=== PATIENT | female | born 1995 | race Caucasian/White ===

== ENCOUNTER 2020-02-13 16:19 | Emergency (ER) | payer OTHER, MEDICAID, SELFPAY ==
[2020-02-13 16:45] VITALS: BP 145/85; PULSE 77; RESP 16; TEMP 37.1; O2SAT 99; BMI 21.6
--- NOTE | 2020-02-13 17:40 | PC.NURSE ---
Recent diagnosis of pleurisy and sinus/ear infection, started on antibiotics. Reports no improvement of symptoms after taking antibiotics. Feeling worse.
--- NOTE | 2020-02-13 17:42 | DI.RAD.S_ITS ---
PROCEDURE: XR CHEST 2V INDICATIONS: chest pain, dyspnea TECHNIQUE: 2 views of the chest were acquired. COMPARISON: None. FINDINGS: Surgical changes and devices: None. Lungs and pleura: Lungs are clear. No pleural effusions or pneumothorax. Mediastinum: Mediastinal contours are normal. Heart size is normal. Bones and chest wall: No suspicious bony abnormalities. Soft tissues appear unremarkable. IMPRESSION: No acute cardiopulmonary disease process. Dictated by: Debra Jay MD, PhD on 02/13/2020 at 18:39 Approved by: Debra Jay MD, PhD on 02/13/2020 at 18:40
[2020-02-13 17:43] LABS: COVID19 -Nasal RAPID Negative (Negative)
[2020-02-13] MEDS: hydrOXYzine pamoate 25 MG CAPSULE PO (18:08)
[2020-02-13] MEDS: ACETAMINOPHEN 325 MG TABLET 650 MG PO (18:08)
--- NOTE | 2020-02-13 18:18 | ED_ITS ---
HPI - Chest Pain <CESARIO Dill - Last Filed: 02/13/20 20:38> General Chief Complaint: Shortness of Breath/Dyspnea Stated Complaint: SOB, past week, worsening Time Seen by Provider: 02/13/20 17:01 Source: patient Mode of arrival: Ambulatory Limitations: no limitations History of Present Illness HPI narrative: This is a 24 year female, occasional smoker, with past medical history significant for anxiety, middle ear effusion was currently taking antibiotic medication Cefpodoxime 200mg BID for 7 days and she is on day 3, presents to ED with her want with chief complain of left-sided upper chest and under the left breast pain, dizziness, short of breath started 1 week ago with w orsening symptoms, feeling fatigue as she was anemic in the past. Patient reports pain worsens with supine position and improves with leaning forward. Patient also reports bilateral upper leg cramping worsen right-sided. Patient denies swelling, warmth, or redness to lower extremities. Patient reports has been woken up from her sleep feeling with difficulty breathing. Patient denies fever, cough, history of blood clots, prolonged bed rest, calf pain, hemoptysis, near syncope or fainting episodes. Patient reports nasal congestion with breathing. Patient reports some discomfort in her jaw, ear, throat, mild nausea, chills. Patient denies exposure to Covid, symptoms of COVID, ill contac t. She denies travel outside the [facility]. Patient has hormonal IUD in placed. LMP 2 weeks ago. Patient reports after the wisdom tooth extraction in September, patient has fluid collection in the ear and had completed a course of antibiotic medication. She had started on singular which ran out and restarted about a month ago but she stopped several days ago for possible side effects and concerned if this is causing recent short of breath and chest pain. Patient had tele health appointment with and started on antibiotic medication for ear effusion/infection. PCP Dr. Soraida Wong and Dr. Coco Morrison at , [facility] [place] and she is currently visiting family in [facility]. Related Data Home Medications Medication Instructions Recorded Confirmed [SERTRALINE] 50 mg PO QDAY #0 02/05/20 loratadine 10 mg tablet 10 mg PO DAILY 02/05/20 02/05/20 montelukast PO 02/05/20 02/05/20 propranolol 20 mg tablet 20 mg PO BID 02/05/20 02/05/20 spironolactone 100 mg tablet 100 mg PO DAILY 02/05/20 02/05/20 Allergies Allergy/AdvReac Type Severity Reaction Status Date / Time amoxicillin [From Augmentin] Allergy rash Verified 02/13/20 16:50 clavulanic acid Allergy rash Verified 02/13/20 16:50 [From Augmentin] minocycline Allergy rash Verified 02/13/20 16:50 Sulfa (Sulfonamide Allergy Rash Verified 02/13/20 16:50 Antibiotics) clindamycin AdvReac heartburn Verified 02/13/20 16:50 LATEX Allergy Mild hives Uncoded 02/13/20 16:50 Review of Systems <SUYAPA DillP - Last Filed: 02/13/20 20:38> Review of Systems Narrative: General: Denies fever, (+) chills, (+) fatigue, malaise, sweats. HEENT: Denies sinus pain, (+) ear pain, (+) sore throat, difficulty swallowing, dizziness. Respiratory: See HPI Cardiovascular: See HPI Gastrointestinal: Denies (+) mild nausea, vomiting, abdominal pain, diarrhea, constipation, melena. : Denies dysuria, frequency, incontinence, hematuria, urinary retention. Musculoskeletal: Denies weakness, joint pain or bony pain. Skin: Denies rash, skin lesions, or other. Neurologic: Denies weakness, headache, numbness, change in speech, confusion, seizures, incoordination. Psychiatric: No concerning psychosocial issues. 12-point review of systems is negative except for those stated above. Patient History <SUYAPA DillP - Last Filed: 02/13/20 20:38> Social History Smoking Status: Never smoker Smoking Status: Never smoker alcohol intake frequency: 0-2 drinks per day Substance Use Type: marijuana Exam <Jorge [facility] Last Filed: 02/13/20 20:38> Narrative Exam Narrative: GEN: Alert, oriented x 3, well appearing and nourished, and in no acute distress. Head: Normal cephalic, atraumatic. No scalp or temporal tenderness, palpable mass or rash. EYES: Pupils are equal, round, and reactive to light and accommodation. Extraocular muscles are intact bilaterally. There is no subconjunctival hemorrhage, exudate and sclera non-icteric. ENT: Bilateral auditory canals clear. Tympanic membrane with slight purulent effusion in bilateral ears. Hearing grossly intact. Nose without bleeding, purulent discharge or deviation. Facial sinuses nontender to palpate. Mucous membrane moist, no mucosal lesion. Throat without erythema, tonsillar hypertrophy or exudate. Uvula in midline, airway patent. Neck: Trachea in midline. No JVD, non-tender without lymphadenopathy. No masses or thyroid megaly. Supple, non-tender and no meningeal signs. CARDIAC: Normal regular rate and rhythm without murmurs, gallops, or rubs. No chest wall tenderness. No peripheral edema, cyanosis or pallor. Capillary refill is less than 2 seconds. RESPIRATORY: Lungs are clear to auscultate bilaterally. No cough, wheezes, rales, or rhonchi. No stridor, respiratory distress, increase work of breathing, or accessary muscle used. ABD: Abdomen soft, nontender and non-distended. No guarding or rebound tenderness to palpate. Bowel sounds are normal in all 4 quadrants. There is no palpable masses or organomegaly. EXT: Full painless ROM of all extremities with no loss of sensation, strength, effusion or edema. SKIN: Macular erythematous rash on neck, upper chest, and upper back. Warm, dry, normal color for patient. No erythema, lesions or rash over visible areas. BACK: Nontender without deformity or crepitance. No flank tenderness. NEUROLOGICAL: Alert and oriented to place, time and person. Sensation and motor function intact bilaterally. No facial droops, dysphasia. PSYCHIATRIC: Good judgement and reason, without hallucinations, abnormal affect or abnormal behaviors during the examination. Patient is not suicidal. Initial Vital Signs Initial Vital Signs: Vital Signs Temperature 98.8 F 02/13/20 16:45 Pulse Rate 77 02/13/20 16:45 Respiratory Rate 16 02/13/20 16:45 Blood Pressure 145/85 H 02/13/20 16:45 Pulse Oximetry 99 02/13/20 16:45 <Krystal Barth DO - Last Filed: 02/14/20 07:50> Initial Vital Signs Initial Vital Signs: Vital Signs Temperature 98.8 F 02/13/20 16:45 Pulse Rate 77 02/13/20 16:45 Respiratory Rate 16 02/13/20 16:45 Blood Pressure 145/85 H 02/13/20 16:45 Pulse Oximetry 99 02/13/20 16:45 Scores <Jorge AngelCESARIO Martínez - Last Filed: 02/13/20 20:38> GCS [place] coma scale eye opening: Spontaneous Meme coma scale verbal response: Orientated [place] coma scale motor response: Obey commands Meme coma scale total score: 15 HEART Score Heart Score history: Slightly Suspicious Heart Score EKG: Normal Heart Score Age: < 45 years old Heart Score risk factors: No known risk factors Heart Score troponin: < or = to normal limit Heart Score Total: 0 Wells' Criteria for PE Clinical signs and symptoms of DVT: No PE is #1 Dx or equally likely: No Heart rate > 100: No Immobilization at least 3 days or surg in previous 4 weeks: No History of PE or DVT: No Hemoptysis: No Malignancy w/Treatment within 6 months or palliative: No Wells' PE Score total: 0 Course <[facility] - Last Filed: 02/13/20 20:38> Orders Ordered: Discontinued Medications Acetaminophen (Tylenol) 650 mg PO NOW ONE Stop: 02/13/20 17:43 Last Admin: 02/13/20 18:08 Dose: 650 mg Documented by: MARCIAL Hydroxyzine Pamoate (Vistaril) 25 mg PO NOW ONE Stop: 02/13/20 17:43 Last Admin: 02/13/20 18:17 Dose: Not Given Documented by: MARCIAL Vital Signs Vital signs: Vital Signs - 8 hr 02/13/20 16:45 Temperature 98.8 F Pulse Rate 77 Respiratory Rate 16 Blood Pressure 145/85 H Pulse Oximetry 99 <Krystal Barth DO - Last Filed: 02/14/20 07:50> Orders Ordered: Discontinued Medications Acetaminophen (Tylenol) 650 mg PO NOW ONE Stop: 02/13/20 17:43 Last Admin: 02/13/20 18:08 Dose: 650 mg Documented by: MARCIAL Hydroxyzine Pamoate (Vistaril) 25 mg PO NOW ONE Stop: 02/13/20 17:43 Last Admin: 02/13/20 18:17 Dose: Not Given Documented by: MARCIAL Vital Signs Vital signs: Vital Signs - 8 hr 02/13/20 16:45 Temperature 98.8 F Pulse Rate 77 Respiratory Rate 16 Blood Pressure 145/85 H Pulse Oximetry 99 MDM - Chest Pain <Jorge CESARIO Estes - Last Filed: 02/13/20 20:38> Differential Diagnosis Differential diagnosis: Likely unstable angina pectoris, atypical chest pain and other (Pleuritis, pericarditis, anxiety, pneumonia, Covid, pulmonary embolism, arrhythmia, abnormal electrolytes) Medical Records Data Attestation: I reviewed the patient's medical records. Lab Data Attestation: I reviewed the patient's lab results. Result diagrams: 02/13/20 18:14 02/13/20 18:14 Labs: Lab Results 02/13/20 02/13/20 02/13/20 Range/Units 17:10 18:14 18:14 WBC 5.8 (4.5-11.0) X10^3/uL RBC 4.65 (4.0-5.2) X10^6/uL Hgb 14.3 (12.0-16.0) g/dL Hct 42.1 (36-46) % MCV 90.6 (80-100) fL MCH 30.8 (26-34) PG MCHC 34.0 (30-36) % RDW 12.3 (11.6-14.8) % Plt Count 192 (150-400) X10^3/uL Neut % (Auto) 64.2 (50-75) % Lymph % (Auto) 27.7 (25-40) % [place] % (Auto) 5.5 (3-14) % Eos % (Auto) 1.8 L (2-4) % Baso % (Auto) 0.8 (0-2) % Neut # (Auto) 3800 (3308-7699) /uL Lymph # (Auto) 1600 (4366-6109) /uL [place] # (Auto) 300 (0-900) /uL Eos # (Auto) 100 (0-450) /uL Baso # (Auto) 0 (0-100) /uL D-Dimer 472 H (<230) ng/mL Sodium (137-145) mmol/L Potassium (3.4-5.1) mmol/L Chloride (98-107) mmol/L Carbon Dioxide (22-32) mmol/L BUN (7-17) mg/dL Creatinine (0.52-1.04) mg/dL Estimated GFR (>60) mL/min BUN/Creatinine Ratio (6-22) Glucose (70-100) mg/dL Lactate (0.7-2.1) mmol/L Calcium (8.4-10.2) mg/dL Magnesium (1.6-2.3) mg/dL Total Bilirubin (0.2-1.3) mg/dL AST (14-36) IU/L ALT (<35) IU/L Alkaline Phosphatase (38-126) U/L Total Creatine Kinase (30-135) U/L CK-MB (CK-2) CK-MB (CK-2) Rel Index Troponin I (0.01-0.034) ng/mL NT-Pro-B Natriuret Pep (<125) pg/mL Total Protein (6.3-8.2) g/dL Albumin (3.5-5.0) g/dL Globulin (1.7-4.1) g/dL Albumin/Globulin Ratio (1.0-2.8) Procalcitonin (<0.5) ng/mL COVID-19 PCR Negative (Negative) 02/13/20 02/13/20 02/13/20 Range/Units 18:14 18:14 18:14 WBC (4.5-11.0) X10^3/uL RBC (4.0-5.2) X10^6/uL Hgb (12.0-16.0) g/dL Hct (36-46) % MCV (80-100) fL MCH (26-34) PG MCHC (30-36) % RDW (11.6-14.8) % Plt Count (150-400) X10^3/uL Neut % (Auto) (50-75) % Lymph % (Auto) (25-40) % [place] % (Auto) (3-14) % Eos % (Auto) (2-4) % Baso % (Auto) (0-2) % Neut # (Auto) (8276-0826) /uL Lymph # (Auto) (2894-5524) /uL [place] # (Auto) (0-900) /uL Eos # (Auto) (0-450) /uL Baso # (Auto) (0-100) /uL D-Dimer (<230) ng/mL Sodium 136 L (137-145) mmol/L Potassium 4.1 (3.4-5.1) mmol/L Chloride 103 (98-107) mmol/L Carbon Dioxide 31 (22-32) mmol/L BUN 11 (7-17) mg/dL Creatinine 0.63 (0.52-1.04) mg/dL Estimated GFR > 60.0 (>60) mL/min BUN/Creatinine Ratio 17.5 (6-22) Glucose 99 (70-100) mg/dL Lactate 1.1 (0.7-2.1) mmol/L Calcium 9.5 (8.4-10.2) mg/dL Magnesium 2.0 (1.6-2.3) mg/dL Total Bilirubin 0.5 (0.2-1.3) mg/dL AST 31 (14-36) IU/L ALT 29 (<35) IU/L Alkaline Phosphatase 85 (38-126) U/L Total Creatine Kinase 53 (30-135) U/L CK-MB (CK-2) TNP CK-MB (CK-2) Rel Index TNP Troponin I < 0.012 (0.01-0.034) ng/mL NT-Pro-B Natriuret Pep (<125) pg/mL Total Protein 7.8 (6.3-8.2) g/dL Albumin 4.5 (3.5-5.0) g/dL Globulin 3.3 (1.7-4.1) g/dL Albumin/Globulin Ratio 1.4 (1.0-2.8) Procalcitonin < 0.05 (<0.5) ng/mL COVID-19 PCR (Negative) 02/13/20 Range/Units 18:14 WBC (4.5-11.0) X10^3/uL RBC (4.0-5.2) X10^6/uL Hgb (12.0-16.0) g/dL Hct (36-46) % MCV (80-100) fL MCH (26-34) PG MCHC (30-36) % RDW (11.6-14.8) % Plt Count (150-400) X10^3/uL Neut % (Auto) (50-75) % Lymph % (Auto) (25-40) % [place] % (Auto) (3-14) % Eos % (Auto) (2-4) % Baso % (Auto) (0-2) % Neut # (Auto) (5606-2168) /uL Lymph # (Auto) (6073-0107) /uL [place] # (Auto) (0-900) /uL Eos # (Auto) (0-450) /uL Baso # (Auto) (0-100) /uL D-Dimer (<230) ng/mL Sodium (137-145) mmol/L Potassium (3.4-5.1) mmol/L Chloride (98-107) mmol/L Carbon Dioxide (22-32) mmol/L BUN (7-17) mg/dL Creatinine (0.52-1.04) mg/dL Estimated GFR (>60) mL/min BUN/Creatinine Ratio (6-22) Glucose (70-100) mg/dL Lactate (0.7-2.1) mmol/L Calcium (8.4-10.2) mg/dL Magnesium (1.6-2.3) mg/dL Total Bilirubin (0.2-1.3) mg/dL AST (14-36) IU/L ALT (<35) IU/L Alkaline Phosphatase (38-126) U/L Total Creatine Kinase (30-135) U/L CK-MB (CK-2) CK-MB (CK-2) Rel Index Troponin I (0.01-0.034) ng/mL NT-Pro-B Natriuret Pep 27 (<125) pg/mL Total Protein (6.3-8.2) g/dL Albumin (3.5-5.0) g/dL Globulin (1.7-4.1) g/dL Albumin/Globulin Ratio (1.0-2.8) Procalcitonin (<0.5) ng/mL COVID-19 PCR (Negative) Point of Care Testing Test Results Negative Urine Dip Bedside Urine Glucose Negative Bedside Urine Bilirubin - Negative Bedside Urine Ketone - Negative Urine Specific [place] 1.010 Bedside Urine Occult Blood - Negative Bedside Urine pH 7.0 Bedside Urine Protein - Negative Bedside Urine Urobilinogen - Negative Bedside Urine Nitrite - Negative Bedside Urine Leukocytes - Negative Esterase Imaging Data Chest x-ray: Radiologist's Impression: [address] [address] XRay Report Signed Patient: Remigio Andino LMR#: [id number] : 1995Acct:[id number] Age/Sex: 24 / FDate of Service: 02/13/20 Loc: ED Accession Number: [id number] Procedure: XR chest 2V Ordering Provider: Jorge Estes PROCEDURE: XR CHEST 2V INDICATIONS: chest pain, dyspnea TECHNIQUE: 2 views of the chest were acquired. COMPARISON: None. FINDINGS: Surgical changes and devices: None. Lungs and pleura: Lungs are clear. No pleural effusions or pneumothorax. Mediastinum: Mediastinal contours are normal. Heart size is normal. Bones and chest wall: No suspicious bony abnormalities. Soft tissues appear unremarkable. IMPRESSION: No acute cardiopulmonary disease process. Dictated by: Debra Jay MD, PhD on 02/13/2020 at 18:39 Approved by: Debra Jay MD, PhD on 02/13/2020 at 18:40 CT scan - chest: Radiologist's Impression: Chart [facility]er Diagnostics DATE TYPE STATUS REF RANGE/AUTHOR Hx 02/13/20 18:55 Debra Jay 02/13/20 17:42 Debra Jay Remigio Andino 24, F1995 [facility], Main ED R06 180.34cm 70.307kg BMI: 21.6kg/m? Shortness of Breath/Dyspnea Search Chart No Data to Display NF - Not included in interaction checking rash rash rash Rash heartburn hives ONSET Today 16:45 Remigio Andino 24 F [address] [address] [address] Scan Report Signed Patient: Remigio Andino LMR#: [id number] : 1995Acct:[id number] Age/Sex: 24 / FDate of Service: 02/13/20 Loc: ED Accession Number: [id number] Procedure: CT angio chest PE protocol Ordering Provider: Jorge Estes PROCEDURE: CT ANGIO CHEST PE PROTOCOL INDICATIONS: SOB, Chest pain, elevated D dimer TECHNIQUE: After the administration of intravenous contrast, 2 mm thick sections acquired from the pulmonary apices to the posterior costophrenic angles. 3-dimensional maximum intensity projection (MIP) coronal and sagittal reformats were then acquired through the thorax. For radiation dose reduction, the following was used: automated exposure control, adjustment of mA and/or kV according to patient size. COMPARISON: None. FINDINGS: Image quality: Excellent. Pulmonary arteries: Pulmonary arteries are normal in size, and demonstrate no intraluminal filling defects to suggest central pulmonary embolism. Lungs and pleura: Lungs are clear. No pleural effusions or pneumothorax. Central and peripheral airways are patent. Mediastinum: Heart size is normal, without pericardial effusion. No mediastinal or hilar adenopathy. Thoracic aorta is normal in caliber and enhancement. Esophagus is normal in caliber, without hiatal hernia. Bones and chest wall: No suspicious bony lesions. Ribs and thoracic spine appear intact throughout. No axillary or supraclavicular adenopathy. Abdomen: Visualized upper abdominal solid organs appear normal in the early arterial phase of enhancement. IMPRESSION: 1. No pulmonary embolus. 2. No lung consolidation or pleural effusions. Dictated by: Debra Jay MD, PhD on 02/13/2020 at 19:30 Approved by: Debra Jay MD, PhD on 02/13/2020 at 19:33 ECG Data Attestation: I personally reviewed and interpreted this ECG as follows: Prior ECG tracings: available for review Interpretation: Sinus rhythm with sinus arrhythmia rate at 74. Normal [place]. NM interval 144, QRS duration 98, QT/QTC 373/[address] changes MDM Narrative Medical decision making narrative: This is a 24-year-old female who presents to ED with fatigue, left upper chest and under breast pain worse with supine position, dyspnea for last week with progressively worsening symptoms, nasal co ngestion. Patient reports ear pain for last 3 months and she is currently taking antibiotic medication was started 3 days ago. EKG sinus rhythm with sinus arrhythmia rate at [address] changes. Chest x-ray without acute findings. Unremarkable chemistry test. Stable H&H of 14.3/42.1. No leukocytosis. Negative cardiac enzymes. Normal BNP. Normal lactate and procalcitonin. Covid test was negative. D dimer has slight increase for her age as 472. Chest CT test done for PE which shows negative for pulmonary embolism or infection. Physical exam is unremarkable. Patient received extensive workup for infection, heart failure, cardiac workup, PE which are assuring. Her physical exam was unremarkable except bilateral middle ear effusion. Patient advised continue with antibiotic medication and medications she currently takes. Patient is afebrile with within normal vital signs with O2 sats from 97-99%. It is unclear etiology for patient's symptoms. Patient's symptoms may somewhat related to anxiety. Advised to take Tylenol and or Motrin in case patient has pleuritis or pericarditis. Patient declined hydroxyzine when offered. Her macular erythematous rash improved around upper chest and neck. Advised to follow up with primary care physician and return precautions were discussed with patient and her family which they both verbalized understanding and agreement with treatment plan. <Krystal Barth, DO - Last Filed: 02/14/20 07:50> Lab Data Labs: Lab Results 02/13/20 02/13/20 02/13/20 Range/Units 17:10 18:14 18:14 WBC 5.8 (4.5-11.0) X10^3/uL RBC 4.65 (4.0-5.2) X10^6/uL Hgb 14.3 (12.0-16.0) g/dL Hct 42.1 (36-46) % MCV 90.6 (80-100) fL MCH 30.8 (26-34) PG MCHC 34.0 (30-36) % RDW 12.3 (11.6-14.8) % Plt Count 192 (150-400) X10^3/uL Neut % (Auto) 64.2 (50-75) % Lymph % (Auto) 27.7 (25-40) % [place] % (Auto) 5.5 (3-14) % Eos % (Auto) 1.8 L (2-4) % Baso % (Auto) 0.8 (0-2) % Neut # (Auto) 3800 (4376-5011) /uL Lymph # (Auto) 1600 (1414-9163) /uL [place] # (Auto) 300 (0-900) /uL Eos # (Auto) 100 (0-450) /uL Baso # (Auto) 0 (0-100) /uL D-Dimer 472 H (<230) ng/mL Sodium (137-145) mmol/L Potassium (3.4-5.1) mmol/L Chloride (98-107) mmol/L Carbon Dioxide (22-32) mmol/L BUN (7-17) mg/dL Creatinine (0.52-1.04) mg/dL Estimated GFR (>60) mL/min BUN/Creatinine Ratio (6-22) Glucose (70-100) mg/dL Lactate (0.7-2.1) mmol/L Calcium (8.4-10.2) mg/dL Magnesium (1.6-2.3) mg/dL Total Bilirubin (0.2-1.3) mg/dL AST (14-36) IU/L ALT (<35) IU/L Alkaline Phosphatase (38-126) U/L Total Creatine Kinase (30-135) U/L CK-MB (CK-2) CK-MB (CK-2) Rel Index Troponin I (0.01-0.034) ng/mL NT-Pro-B Natriuret Pep (<125) pg/mL Total Protein (6.3-8.2) g/dL Albumin (3.5-5.0) g/dL Globulin (1.7-4.1) g/dL Albumin/Globulin Ratio (1.0-2.8) Procalcitonin (<0.5) ng/mL COVID-19 PCR Negative (Negative) 02/13/20 02/13/20 02/13/20 Range/Units 18:14 18:14 18:14 WBC (4.5-11.0) X10^3/uL RBC (4.0-5.2) X10^6/uL Hgb (12.0-16.0) g/dL Hct (36-46) % MCV (80-100) fL MCH (26-34) PG MCHC (30-36) % RDW (11.6-14.8) % Plt Count (150-400) X10^3/uL Neut % (Auto) (50-75) % Lymph % (Auto) (25-40) % [place] % (Auto) (3-14) % Eos % (Auto) (2-4) % Baso % (Auto) (0-2) % Neut # (Auto) (3142-5947) /uL Lymph # (Auto) (6664-2633) /uL [place] # (Auto) (0-900) /uL Eos # (Auto) (0-450) /uL Baso # (Auto) (0-100) /uL D-Dimer (<230) ng/mL Sodium 136 L (137-145) mmol/L Potassium 4.1 (3.4-5.1) mmol/L Chloride 103 (98-107) mmol/L Carbon Dioxide 31 (22-32) mmol/L BUN 11 (7-17) mg/dL Creatinine 0.63 (0.52-1.04) mg/dL Estimated GFR > 60.0 (>60) mL/min BUN/Creatinine Ratio 17.5 (6-22) Glucose 99 (70-100) mg/dL Lactate 1.1 (0.7-2.1) mmol/L Calcium 9.5 (8.4-10.2) mg/dL Magnesium 2.0 (1.6-2.3) mg/dL Total Bilirubin 0.5 (0.2-1.3) mg/dL AST 31 (14-36) IU/L ALT 29 (<35) IU/L Alkaline Phosphatase 85 (38-126) U/L Total Creatine Kinase 53 (30-135) U/L CK-MB (CK-2) TNP CK-MB (CK-2) Rel Index TNP Troponin I < 0.012 (0.01-0.034) ng/mL NT-Pro-B Natriuret Pep (<125) pg/mL Total Protein 7.8 (6.3-8.2) g/dL Albumin 4.5 (3.5-5.0) g/dL Globulin 3.3 (1.7-4.1) g/dL Albumin/Globulin Ratio 1.4 (1.0-2.8) Procalcitonin < 0.05 (<0.5) ng/mL COVID-19 PCR (Negative) 02/13/20 Range/Units 18:14 WBC (4.5-11.0) X10^3/uL RBC (4.0-5.2) X10^6/uL Hgb (12.0-16.0) g/dL Hct (36-46) % MCV (80-100) fL MCH (26-34) PG MCHC (30-36) % RDW (11.6-14.8) % Plt Count (150-400) X10^3/uL Neut % (Auto) (50-75) % Lymph % (Auto) (25-40) % [place] % (Auto) (3-14) % Eos % (Auto) (2-4) % Baso % (Auto) (0-2) % Neut # (Auto) (2209-1352) /uL Lymph # (Auto) (3145-2162) /uL [place] # (Auto) (0-900) /uL Eos # (Auto) (0-450) /uL Baso # (Auto) (0-100) /uL D-Dimer (<230) ng/mL Sodium (137-145) mmol/L Potassium (3.4-5.1) mmol/L Chloride (98-107) mmol/L Carbon Dioxide (22-32) mmol/L BUN (7-17) mg/dL Creatinine (0.52-1.04) mg/dL Estimated GFR (>60) mL/min BUN/Creatinine Ratio (6-22) Glucose (70-100) mg/dL Lactate (0.7-2.1) mmol/L Calcium (8.4-10.2) mg/dL Magnesium (1.6-2.3) mg/dL Total Bilirubin (0.2-1.3) mg/dL AST (14-36) IU/L ALT (<35) IU/L Alkaline Phosphatase (38-126) U/L Total Creatine Kinase (30-135) U/L CK-MB (CK-2) CK-MB (CK-2) Rel Index Troponin I (0.01-0.034) ng/mL NT-Pro-B Natriuret Pep 27 (<125) pg/mL Total Protein (6.3-8.2) g/dL Albumin (3.5-5.0) g/dL Globulin (1.7-4.1) g/dL Albumin/Globulin Ratio (1.0-2.8) Procalcitonin (<0.5) ng/mL COVID-19 PCR (Negative) Point of Care Testing Test Results Negative Urine Dip Bedside Urine Glucose Negative Bedside Urine Bilirubin - Negative Bedside Urine Ketone - Negative Urine Specific [place] 1.010 Bedside Urine Occult Blood - Negative Bedside Urine pH 7.0 Bedside Urine Protein - Negative Bedside Urine Urobilinogen - Negative Bedside Urine Nitrite - Negative Bedside Urine Leukocytes - Negative Esterase Discharge Plan Departure Patient Disposition: Home Clinical Impression: Atypical chest pain, Shortness of breath Middle ear effusion Qualifiers: Laterality: bilateral Qualified Code(s): H65.93 - Unspecified nonsuppurative otitis media, bilateral Discharge Date/Time: 02/13/20 20:28 Instructions: DI for Atypical Chest Pain, DI for Shortness of Breath, DI for Nasal Congestion Activity Restrictions/Additional Instructions: You have been diagnosed with [atypical chest pain, short of breath, nasal congestion, bilateral ear effusion. EKG, chest x-ray, chest CT, labs are all unremarkable. EKG is sinus rhythm. No indications for pulmonary embolism or infection. Urine test was negative for or infection. Cardiac enzymes were negative. Negative lactate, procalcitonin for sepsis or severe bacterial infection. D-dimer was slightly elevated as 472 which followed up with chest CT test.]. What to do: *Take your medications as directed. Continue with her current medications-surge traveling, loratadine, montelukast, Flonase, and propanolol. Please use humidifier as needed to moist air and nights. *Follow up with your primary care provider in 2-3 days, call for an appointment. Let them know you were seen in the ED and that we asked you to be seen in follow up. *Return to ED if you have any new, worsening, or concerning symptoms, such as [w orsening or different chest pain, worsening dyspnea/short of breath, fever, unable to tolerate fluids, or any acute concerns]. Prescriptions: No Action spironolactone 100 mg tablet 100 mg PO DAILY RF: 0 montelukast PO RF: 0 loratadine 10 mg tablet 10 mg PO DAILY RF: 0 propranolol 20 mg tablet 20 mg PO BID RF: 0 [SERTRALINE] 50 mg PO QDAY Qty: 0 RF: 0 Referrals: Miscellaneous,Doctor, [Primary Care Provider] - <Krystal Barth DO - Last Filed: 02/14/20 07:50> Cosign ED Attending Cosignature Attestation: I was immediately available in the department for consultation. Documentation has been reviewed. I agree with assessment and plan.
[2020-02-13 18:33] LABS: Add Manual Diff / Slide Review NO; Basophils Absolute Auto 0 /uL (0-100); Basophils Percent Auto 0.8 % (0-2); Eosinophils Absolute Auto 100 /uL (0-450); Eosinophils Percent Auto 1.8 % (2-4); Hematocrit 42.1 % (36-46); Hemoglobin 14.3 g/dL (12.0-16.0); Lymphocytes Absolute Auto 1600 /uL (1100-4500); Lymphocytes Percent Auto 27.7 % (25-40); Mean Corpuscular Hemoglobin 30.8 PG (26-34); Mean Corpuscular Volume 90.6 fL (80-100); Monocytes Absolute Auto 300 /uL (0-900); Monocytes Percent Auto 5.5 % (3-14); Neutrophils Absolute Auto 3800 /uL (1500-7000); Neutrophils Percent Auto 64.2 % (50-75); Platelet Count 192 X10^3/uL (150-400); Red Blood Cell Count 4.65 X10^6/uL (4.0-5.2); Red Cell Distribution Width 12.3 % (11.6-14.8); White Blood Cell Count 5.8 X10^3/uL (4.5-11.0)
[2020-02-13 18:41] LABS: Lactate (Lactic Acid) 1.1 mmol/L (0.7-2.1)
[2020-02-13 18:43] LABS: Alanine Aminotransferase 29 IU/L (<35); Albumin 4.5 g/dL (3.5-5.0); Albumin Globulin Ratio 1.4 (1.0-2.8); Alkaline Phosphatase 85 U/L (38-126); Aspartate Aminotransferase 31 IU/L (14-36); BUN Creatinine Ratio 17.5 (6-22); Bilirubin Total 0.5 mg/dL (0.2-1.3); Blood Urea Nitrogen 11 mg/dL (7-17); Calcium 9.5 mg/dL (8.4-10.2); Carbon Dioxide 31 mmol/L (22-32); Chloride 103 mmol/L (98-107); Creatine Kinase 53 U/L (30-135); Estimated Glomerular Filt Rate > 60.0 mL/min (>60); Globulin 3.3 g/dL (1.7-4.1); Glucose 99 mg/dL (70-100); HEMOLYSIS 26 (0-50); Potassium 4.1 mmol/L (3.4-5.1); Sodium 136 mmol/L (137-145); Total Protein 7.8 g/dL (6.3-8.2)
[2020-02-13 18:45] LABS: D Dimer 472 ng/mL (<230)
[2020-02-13 18:51] LABS: NT-proBNP (BNP-Adult 18+) 27 pg/mL (<125)
[2020-02-13 18:55] LABS: Troponin I < 0.012 ng/mL (0.01-0.034)
--- NOTE | 2020-02-13 18:55 | DI.CT.S_ITS ---
PROCEDURE: CT ANGIO CHEST PE PROTOCOL INDICATIONS: SOB, Chest pain, elevated D dimer TECHNIQUE: After the administration of intravenous contrast, 2 mm thick sections acquired from the pulmonary apices to the posterior costophrenic angles. 3-dimensional maximum intensity projection (MIP) coronal and sagittal reformats were then acquired through the thorax. For radiation dose reduction, the following was used: automated exposure control, adjustment of mA and/or kV according to patient size. COMPARISON: None. FINDINGS: Image quality: Excellent. Pulmonary arteries: Pulmonary arteries are normal in size, and demonstrate no intraluminal filling defects to suggest central pulmonary embolism. Lungs and pleura: Lungs are clear. No pleural effusions or pneumothorax. Central and peripheral airways are patent. Mediastinum: Heart size is normal, without pericardial effusion. No mediastinal or hilar adenopathy. Thoracic aorta is normal in caliber and enhancement. Esophagus is normal in caliber, without hiatal hernia. Bones and chest wall: No suspicious bony lesions. Ribs and thoracic spine appear intact throughout. No axillary or supraclavicular adenopathy. Abdomen: Visualized upper abdominal solid organs appear normal in the early arterial phase of enhancement. IMPRESSION: 1. No pulmonary embolus. 2. No lung consolidation or pleural effusions. Dictated by: Debra Jay MD, PhD on 02/13/2020 at 19:30 Approved by: Debra Jay MD, PhD on 02/13/2020 at 19:33
[2020-02-13 18:58] LABS: Procalcitonin < 0.05 ng/mL (<0.5)
[2020-02-13 20:27] VITALS: BP 136/80; PULSE 74; RESP 16; O2SAT 97
== END 2020-02-13 20:28 | disposition home or self-care (01) ==
PROVIDERS: Emergency Provider Nurse Practitioner Family
DX: R07.89 Other chest pain (principal); R06.02 Shortness of breath; H65.93 Unspecified nonsuppurative otitis media, bilateral; R42 Dizziness and giddiness
CPT/HCPCS: 36415; 71046; 71275; 80053; 81003; 81025; 82550; 83605; 83735; 83880; 84145; 84484; 85025; 85379; 87635; 93005; 93010; 99284; Q9967